=== PATIENT | male | born 1980 | race Caucasian/White ===

== ENCOUNTER 2019-12-20 16:14 | Emergency (ER) | payer OTHER, SELFPAY ==
--- NOTE | ~2019-12-20 | XR_ITS ---
XR foot RT min 3V 12/20/2019 16:47 INDICATION: Right foot pain PROCEDURE: 4 views right foot COMPARISON: No prior studies for comparison. FINDINGS: Fracture, dislocation or subluxation is not identified. Lisfranc joint intact. The soft tis sues appear within normal limits. No foreign bodies are identified. IMPRESSION: 1: NO ACUTE BONE OR JOINT ABNORMALITY IDENTIFIED. Reviewed, dictated and finalized at location A. [employer]
[2019-12-20 16:20] VITALS: BP 111/71; PULSE 98; RESP 20; TEMP 36.6; O2SAT 98
--- NOTE | 2019-12-20 16:32 | ED.LOWEXIN ---
HPI - Extremity Injury (Lower) General Chief Complaint: Extremity Injury, Lower Stated Complaint: right foot pain Time Seen by Provider: 12/20/19 16:33 Source: patient Mode of arrival: ambulatory Limitations: no limitations History of Present Illness HPI Narrative: Previously well 39-year-old man comes in today complaining of pain in his right lateral midfoot this started 2 weeks ago. Patient states that he had an inversion injury and had difficulty bearing weight but then he injured it again last night. Complains of pain and swelling anterior to the lateral malleolus. He states that he has always had trouble moving his toes and had numbness in his toes. He denies prior ankle and foot fractures and prior ankle and foot surgery MD complaint: ankle injury and foot injury Onset (ago): week(s) (2) Injury: Right: ankle and foot Type of Injury: inversion Place: home Severity: moderate Exacerbating factors: weight bearing, movement and palpation Associated symptoms: swelling and ambulatory Other symptoms: none Related Data Allergies Allergy/AdvReac Type Severity Reaction Status Date / Time No Known Allergies Allergy Verified 12/20/19 16:29 Review of Systems Constitutional: Constitutional: Denies chills and Denies fever(s) Musculoskeletal: Musculoskeletal: Reports as per HPI, Reports arthralgias and Reports joint swelling Integumentary/Breasts: Skin/Breast: Denies pruritus and Denies rash Neurologic: Denies vertigo, Denies dizziness and Denies syncope Hematologic/Lymphatic: Hematologic/Lymphatic: Denies easy bleeding and Denies easy bruising Allergic/Immunologic: Allergic/Immunologic: Denies lip swelling and Denies tongue swelling [facility] Social History Social History Smoking status: Never smoker Substance use: never Living arrangements: with family Exam Const: General: alert Orientation/consciousness: patient oriented x3 Other: mild acute distress Eyes: Conjunctivae: conjunctivae normal Pupils: Equal, round and reactive pupils present EOM: EOMs intact bilaterally Resp: Effort & Inspection: normal respiratory effort and not labored Auscultation: clear to auscultation bilaterally, no rales, no rhonchi and no wheezes Cardio: Rate: regular rate Rhythm: regular rhythm Heart sounds: no murmurs Skin: General skin exam: normal color, no jaundice and no pallor Rashes: no rashes Neuro: General: patient oriented x3, no focal motor deficits and CN's II-XI intact bilaterally Speech: normal speech Gait exam (Neuro): Normal gait present Extrem: General: normal to inspection and no clubbing, cyanosis or edema Other: On the right foot and ankle exam, there is tenderness to palpation over the mid lateral tarsals mild tenderness over the distal 5th metatarsal. Some minimal swelling anterior to the right lateral malleolus. there is no tenderness palpation of the medial or lateral malleoli, the length of the fibula, the calcaneus, or the remaining metatarsals or toes. distal neurovascular exam is intact. Psych: Appearance: grossly normal and well kempt Mental Status: mental status grossly normal Affect: normal affect Attitude: cooperative MDM - Extremity Injury (Lower) Differential Diagnosis Differential diagnosis: Likely other ( Ankle sprain, foot fracture) Discharge Plan Discharge Clinical Impression: Ankle sprain and strain Patient Disposition: Home, Self-Care Condition: Stable Instructions: Ankle Sprain (ED) Additional Instructions: Rest, Ice, Elevation, Ibuprofen Ricci wrap at night to reduce swelling. Prescriptions: New acetaminophen-codeine 300-30 mg tablet 1 tablet PO Q6H PRN (Reason: pain) Qty: 7 RF: 0 (DME) crutch Misc See Rx Instructions .ROUTE .MEDSUPPLY Qty: 2 RF: 0 Follow-up/Referrals: UNKNOWN,DOCTOR [Primary Care Provider] - Time of Disposition: 17:05
[2019-12-20] MEDS: IBUPROFEN 600 MG TABLET PO (16:55)
[2019-12-20 17:12] VITALS: RESP 16
== END 2019-12-20 17:12 | disposition home or self-care (01) ==
PROVIDERS: Emergency Provider Emergency Medicine
DX: S93.401A Sprain of unspecified ligament of right ankle, initial encounter (principal)
CPT/HCPCS: 29515; 73630; 99283; A9270; L4350

== ENCOUNTER 2020-05-25 15:26 | Emergency (ER) | payer OTHER, SELFPAY ==
[2020-05-25 16:04] VITALS: BP 108/69; PULSE 88; RESP 20; TEMP 36.7; O2SAT 98
--- NOTE | 2020-05-25 16:05 | ED.GENADULT ---
HPI - General Adult General Chief complaint: Skin/Abscess/Foreign Body Stated complaint: bite on shoulder, swelling and warm to touch Source: patient Mode of arrival: ambulatory Limitations: no limitations History of Present Illness HPI narrative: Doron presented to the ER with a boil on his upper right back. It has been getting progressively larger, more painful and red. He feels ill today and had one episode of NBNB vomiting. No fevers, chills, CHOWDARY, SOB, CP or diarrhea. Related Data Allergies Allergy/AdvReac Type Severity Reaction Status Date / Time No Known Allergies Allergy Verified 12/20/19 16:29 Review of Systems Constitutional: Constitutional: Reports as per HPI and Reports fatigue Eyes: Eyes: Reports no additional eye complaints ENT: Reports system reviewed and no additional complaints, except as documented Cardiovascular: Cardiovascular: Reports no additional cardiovascular complaints Respiratory: Respiratory: Reports no additional respiratory complaints Gastrointestinal: Gastrointestinal: Reports no additional gastrointestinal complaints Genitourinary: Genitourinary: Reports no additional male genitourinary complaints Musculoskeletal: Musculoskeletal: Reports no additional musculoskeletal complaints Integumentary/Breasts: Skin/Breast: Reports as per HPI Neurologic: Reports system reviewed and no additional complaints, except as documented Psychiatric: Psychiatric: Reports no additional psychiatric complaints Endocrine: Endocrine: Reports no additional endocrine complaints Hematologic/Lymphatic: Hematologic/Lymphatic: Reports no additional hematologic/lymphatic complaints Allergic/Immunologic: Allergic/Immunologic: Reports no additional allergic/immunologic complaints [facility] Social History Social History Smoking status: Never smoker Substance use: never Gender identity (if verbalized by the patient): Male Exam Const: General: no acute distress and alert Orientation/consciousness: patient oriented x3 Limitations: No altered mental status HENMT: Head: normal to inspection Mouth: Yes Normal oral and palatal mucosa present Eyes: Conjunctivae: conjunctivae normal Pupils: Equal, round and reactive pupils present Neck: Neck: normal visual inspection Chest: Chest palpation & inspection: normal inspection of the chest Resp: Effort & Inspection: normal respiratory effort, not labored, no retractions and not tachypneic Cardio: Rate: regular rate Skin: Other: Upper right back had a quarter sized raised red boil that was TTP with surrounding erythema. Neuro: General: patient oriented x3, moves all extremities and CN's II-XI intact bilaterally Extrem: General: normal to inspection Psych: Mental Status: mental status grossly normal Affect: normal affect Course Vital Signs Vital signs: Vital Signs Temperature 98.0 F 05/25/20 16:04 Pulse Rate 88 05/25/20 16:04 Respiratory Rate 20 05/25/20 16:04 Blood Pressure 108/69 05/25/20 16:04 Pulse Oximetry 98 05/25/20 16:04 Temperature 98.0 F 05/25/20 16:04 Pulse Rate 88 05/25/20 16:04 Respiratory Rate 20 05/25/20 16:04 Blood Pressure 108/69 05/25/20 16:04 Pulse Oximetry 98 05/25/20 16:04 Procedures Abscess I/D back: Side (if applicable): right Local Anesthetic: lidocaine 1% and with epi Technique: incised with #11 blade Irrigation: No Packing used?: none I&D Results: Pus and Blood Abcess I&D Additional Comments: procedure was well tolerated Medical Decision Making Vital Signs Vital Signs: Vital Signs Temperature 98.0 F 05/25/20 16:04 Pulse Rate 88 05/25/20 16:04 Respiratory Rate 20 05/25/20 16:04 Blood Pressure 108/69 05/25/20 16:04 Pulse Oximetry 98 05/25/20 16:04 Temperature 98.0 F 05/25/20 16:04 Pulse Rate 88 05/25/20 16:04 Respiratory Rate 20 05/25/20 16:04 B
[2020-05-25 16:40] VITALS: BP 110/70; PULSE 84; RESP 20; O2SAT 98
== END 2020-05-25 16:42 | disposition home or self-care (01) ==
PROVIDERS: Emergency Provider Family Medicine
DX: L02.212 Cutaneous abscess of back [any part, except buttock and flank] (principal)
CPT/HCPCS: 10060; 99283

== ENCOUNTER 2021-10-20 04:12 | Emergency (ER) | payer OTHER, SELFPAY ==
--- NOTE | ~2021-10-20 | XR_ITS ---
EXAMINATION: XR foot LT 2V DATE: 10/20/2021 04:35 INDICATION: Left foot and ankle pain. TECHNIQUE: 2 views of left foot were obtained. COMPARISON: None. FINDINGS: Bone alignment is normal. No fracture. There is mild osteoarthritis of first metatarsophala ngeal joint and some of the interphalangeal joints. IMPRESSION: 1. Mild polyarticular osteoarthritis. Reviewed, dictated and finalized at location A.
[2021-10-20 04:15] VITALS: BP 122/83; PULSE 81; RESP 18; TEMP 36.7; O2SAT 98
--- NOTE | 2021-10-20 04:29 | ED.LOWEXIN ---
HPI - Extremity Injury (Lower) General Chief Complaint: Extremity Injury, Lower Stated Complaint: left foot pain Source: patient Mode of arrival: ambulatory Limitations: no limitations History of Present Illness HPI Narrative: this is a 41-year-old male presents with some left ankle and foot pain with no known injury started earlier today and intensified overnight the foot and ankle is red warm swollen and tender to touch had a similar episode about 3 4 months ago with red warmth and tenderness to his right foot and ankle. No known injury has limited range of motion secondary to pain swelling, no significant past medical history. MD complaint: other ( patient has been having tenderness throughout the day but pain will woke him) Onset (ago): day(s) Injury: Left: foot ( pain warmth and tenderness swelling) Place: home Severity: moderate Severity scale (1-10): 6 Relieving factors: immobilization Exacerbating factors: weight bearing and palpation Related Data Allergies Allergy/AdvReac Type Severity Reaction Status Date / Time fluoxetine [From Prozac] Allergy Unknown Verified 10/20/21 04:19 Review of Systems Review of Systems: All systems reviewed & are unremarkable except as noted in HPI and below PMFSH Past Medical History Medical History Patient denies medical problems Social History Social History Smoking status: Never smoker Substance use: never Gender identity (if verbalized by the patient): Male Exam Const: General: healthy appearing and no acute distress Limitations: no limitations HENMT: Head: normal to inspection Ears: external ears normal General nose exam: Normal external nose present Face and sinus: normal facial exam Mouth: Yes Normal oral and palatal mucosa present Eyes: Conjunctivae: conjunctivae normal Pupils: Equal, round and reactive pupils present EOM: EOMs intact bilaterally Neck: Neck: normal visual inspection, no lymphadenopathy and no meningeal signs Chest: Chest palpation & inspection: normal inspection of the chest Resp: Effort & Inspection: normal respiratory effort Auscultation: clear to auscultation bilaterally Cardio: Rate: regular rate Rhythm: regular rhythm GI: GI Palp: Yes Soft to palpation Auscultation: normal bowel sounds Back/Spine/Pelvis: Back: no CVA tenderness Skin: General skin exam: normal color Rashes: no rashes Wounds: no wounds Neuro: General: patient oriented x3, moves all extremities and no meningeal signs Extrem: Other: red warm and swollen left foot and ankle Psych: Mental Status: mental status grossly normal Course Course Emergency Course: x-ray reviewed shows no acute fractures, 60mg IM Toradol given patient after reassessment does have some moderate relief of his pain and swelling. Vital Signs Vital signs: Vital Signs Temperature 36.7 C 10/20/21 04:15 Pulse Rate 81 10/20/21 04:15 Respiratory Rate 18 10/20/21 04:15 Blood Pressure 122/83 10/20/21 04:15 Pulse Oximetry 98 10/20/21 04:15 Oxygen Delivery Room Air 10/20/21 04:15 Temperature 36.7 C 10/20/21 04:15 Pulse Rate 81 10/20/21 04:15 Respiratory Rate 18 10/20/21 04:15 Blood Pressure 122/83 10/20/21 04:15 Pulse Oximetry 98 10/20/21 04:15 Oxygen Delivery Room Air 10/20/21 04:15 Critical Care Time Critical Care Time Critical Care Time: No Discharge Plan Discharge Clinical Impression: Gout attack Qualifiers: Gout site: foot Gout etiology: unspecified cause Laterality: left Qualified Code(s): M10.9 - Gout, unspecified Patient Disposition: Home, Self-Care Condition: Stable Instructions: Antibiotic Form, Gout (ED) Additional Instructions: take medicine as prescribed and follow-up with primary care physician in 1 week for further evaluation and treatment. Prescriptions: New indomethacin 50 mg capsule
[2021-10-20] MEDS: KETOROLAC (*BKC) 60 MG/2 ML VIAL IM (04:32)
[2021-10-20 05:06] VITALS: BP 125/82; PULSE 82; RESP 16; O2SAT 98
== END 2021-10-20 05:08 | disposition home or self-care (01) ==
PROVIDERS: Emergency Provider Emergency Medicine
DX: M10.9 Gout, unspecified (principal)
CPT/HCPCS: 73620; 96372; 99283; J1885

== ENCOUNTER 2021-10-26 11:45 | Outpatient (CLI) | payer OTHER, SELFPAY ==
[2021-10-26 11:58] LABS: Hematocrit 44.3 % (40.0-54.0); Hemoglobin 15.7 g/dL (14.0-18.0); Mean Corpuscular HGB Conc 35.4 g/dL (32.0-36.0); Mean Corpuscular Hemoglobin 31.4 pg (27.0-31.0); Mean Corpuscular Volume 88.6 fL (78.0-102.0); Mean Platelet Volume 10.2 fl (8.7-11.0); Platelet Count Result 206 K/mm3 (150-420); Red Cell Distribution Width 13.5 % (11.6-14.4); White Blood Count 6.2 K/mm3 (4.8-10.8)
[2021-10-26 12:43] LABS: Alanine Aminotransferase 21 U/L (16-63); Albumin Level 3.8 g/dL (3.4-5.0); Alkaline Phosphatase 89 U/L (46-116); Anion Gap 10 mmol/L (8-16); Aspartate Amino Transferase 12 U/L (15-37); Bilirubin,Total 0.3 mg/dL (0.00-1.00); Blood Urea Nitrogen 13 mg/dL (7-18); Calcium 8.8 mg/dL (8.5-10.1); Carbon Dioxide 24 mmol/L (21-32); Chloride 104 mmol/L (98-108); Cholesterol 249 mg/dL (0-200); Estimated Glomerular Filt Rate 46; Glucose 109 mg/dL (70-99); HDL Direct 40 mg/dL (40-60); LDL Cholesterol Calculated 175 mg/dL (<130); Osmolality Calculated 287 mOsm/kg (285-295); Potassium 3.9 mmol/L (3.5-5.1); Sodium 138 mmol/L (136-145); Total Protein 7.3 g/dL (6.4-8.2); Triglycerides 172 mg/dL (0-150); Uric Acid 7.6 mg/dL (3.5-7.2)
== END 2021-10-26 11:46 | disposition home or self-care (01) ==
LOC: CHSLAB 11:48
PROVIDERS: PCP Family Medicine; Visit Provider Family Medicine
DX: M10.9 Gout, unspecified (principal)
CPT/HCPCS: 36415; 80053; 80061; 84550; 85027

== ENCOUNTER 2021-11-13 13:19 | Outpatient (CLI) | payer OTHER, SELFPAY ==
[2021-11-13 14:33] LABS: SARS-CoV-2 RNA PCR Negative (Negative)
== END 2021-11-13 13:20 | disposition home or self-care (01) ==
LOC: CHSLAB 13:22
PROVIDERS: PCP Family Medicine; Visit Provider Family Medicine
DX: Z20.822 Contact with and (suspected) exposure to COVID-19 (principal)
CPT/HCPCS: C9803; U0003; U0005

== ENCOUNTER 2021-11-16 16:17 | Outpatient (CLI) | payer OTHER, SELFPAY ==
--- NOTE | ~2021-11-16 | XR_ITS ---
EXAMINATION: XR chest 2V 11/16/2021 16:37 INDICATION: Cough PROCEDURE: 2 view chest COMPARISON: No prior studies for comparison. FINDINGS: The lungs are clear. The cardiomediastinal silhouette is within normal limits. There are no pleural effusions. There is no pneumothorax suspected. IMPRESSION: 1: NO ACUTE CARDIOPULMONARY DISEASE. Reviewed, dictated and finalized at location B.
== END 2021-11-16 16:18 | disposition home or self-care (01) ==
LOC: CHSLAB 16:19
PROVIDERS: PCP Family Medicine; Visit Provider Family Medicine
DX: R05.9 Cough, unspecified (principal)
CPT/HCPCS: 71046

== ENCOUNTER 2023-04-12 09:28 | Emergency (ER) | payer SELFPAY ==
[2023-04-12 09:29] VITALS: BP 129/96; PULSE 75; RESP 18; TEMP 36.4; O2SAT 99
--- NOTE | 2023-04-12 09:32 | ED.EXTPRO ---
HPI - Extremity Problem General Chief complaint: Extremity Problem,Nontraumatic Stated complaint: left toe pain Time Seen by Provider: 04/12/23 09:32 Source: patient Mode of arrival: ambulatory Limitations: no limitations History of Present Illness HPI Narrative: patient is a 43-year-old male with a left great toe pain. Pain is been going on for a few days. His boss sent him to the hospital for evaluation because he could not work due to the pain. MD Complaint: extremity pain ( Left great toe) and joint paint ( left great toe) Onset (ago): day(s) (3) Pain Consistency: constant Location: left, lower extremity and toe ( great toe) Severity scale (1-10): 7 Quality: stabbing, sharp and constant Radiation: proximal Relieving factors: nothing Exacerbating factors: range of motion, weight bearing, walking, exertion and palpation Associated symptoms: denies other symptoms Context: history of gout Related Data Allergies Allergy/AdvReac Type Severity Reaction Status Date / Time fluoxetine [From Prozac] Allergy Unknown Verified 11/16/21 14:46 Review of Systems Review of Systems: All systems reviewed & are unremarkable except as noted in HPI and below Constitutional: Constitutional: Reports no additional constitutional complaints Eyes: Eyes: Reports no additional eye complaints ENT: Reports system reviewed and no additional complaints, except as documented Cardiovascular: Cardiovascular: Reports no additional cardiovascular complaints Respiratory: Respiratory: Reports no additional respiratory complaints Gastrointestinal: Gastrointestinal: Reports no additional gastrointestinal complaints Genitourinary: Genitourinary: Reports no additional male genitourinary complaints Musculoskeletal: Musculoskeletal: Reports no additional musculoskeletal complaints Integumentary/Breasts: Skin/Breast: Reports system reviewed and no additional complaints, except as docu Neurologic: Reports system reviewed and no additional complaints, except as documented Psychiatric: Psychiatric: Reports no additional psychiatric complaints Endocrine: Endocrine: Reports no additional endocrine complaints Hematologic/Lymphatic: Hematologic/Lymphatic: Reports no additional hematologic/lymphatic complaints Allergic/Immunologic: Allergic/Immunologic: Reports no additional allergic/immunologic complaints PMFSH Past Medical History Medical History Patient denies medical problems Social History Social History Smoking packs per day: 0.5 Smoking cigarettes per day: 10.0 Years smoked: 20 Smoking pack-years: 10.00 Smoking status: Current every day smoker Tobacco type: cigarettes Substance use: never Living arrangements: with family Gender identity (if verbalized by the patient): Male Exam Const: General: healthy appearing Nutritional Appearance: well nourished Orientation/consciousness: patient oriented x3 HENMT: Head: normal to inspection Ears: external ears normal Face/Nose/Sinus: Normal external nose present Eyes: Conjunctivae: conjunctivae normal Pupils: Equal, round and reactive pupils present EOM: EOMs intact bilaterally Neck: Neck: normal visual inspection Chest: Chest palpation & inspection: normal inspection of the chest Resp: Effort & Inspection: normal respiratory effort and not labored Auscultation: clear to auscultation bilaterally and no crackles Cardio: Rate: regular rate Rhythm: regular rhythm Heart sounds: no murmurs GI: Inspection: non-distended GI Palp: Yes Soft to palpation and No Tenderness to palpation present (GI) Auscultation: normal bowel sounds : General: Yes bladder normal to palpation Back/Spine/Pelvis: Back: no CVA tenderness Skin: General skin exam: normal color Rashes: no rashes Wounds: no wounds Neuro: General: patient oriented x3 Cranial nerves: Yes Nystagmus not p
== END 2023-04-12 09:54 | disposition home or self-care (01) ==
LOC: CHSED 09:46
PROVIDERS: Emergency Provider Emergency Medicine; PCP Family Medicine
DX: M10.072 Idiopathic gout, left ankle and foot (principal); F17.210 Nicotine dependence, cigarettes, uncomplicated
CPT/HCPCS: 99283

== ENCOUNTER 2023-04-29 12:49 | Emergency (ER) | payer SELFPAY ==
[2023-04-29 12:49] VITALS: BP 110/85; PULSE 96; RESP 18; TEMP 37.2; O2SAT 95
[2023-04-29 13:12] VITALS: O2SAT 95
[2023-04-29 13:14] LABS: Basophils Absolute Auto 0.05 K/mm3 (0.00-0.10); Basophils Percent Auto 0.9 % (0.0-1.0); Eosinophils Absolute Auto 0.19 K/mm3 (0.02-0.50); Eosinophils Percent Auto 3.3 % (1.0-6.0); Hematocrit 48.5 % (40.0-54.0); Hemoglobin 16.6 g/dL (14.0-18.0); Immature Granulocyte Absolute 0.01 K/mm3 (0.00-0.00); Immature Granulocyte Percent A 0.2 % (0.0-0.0); Lymphocytes Absolute Auto 2.03 K/mm3 (1.10-4.50); Lymphocytes Percent Auto 35.1 % (18.0-42.0); Mean Corpuscular HGB Conc 34.2 g/dL (32.0-36.0); Mean Corpuscular Hemoglobin 30.5 pg (27.0-31.0); Mean Corpuscular Volume 89.2 fL (78.0-102.0); Monocytes Absolute Auto 0.58 K/mm3 (0.10-0.90); Neutrophils Absolute Auto 2.9 K/mm3 (1.7-7.2); Neutrophils Percent Auto 50.5 % (50.0-70.0); Platelet Count Result 148 K/mm3 (150-420); Red Blood Count 5.44 M/mm3 (4.70-6.10); Red Cell Distribution Width 13.3 % (11.6-14.4); White Blood Count 5.8 K/mm3 (4.8-10.8)
[2023-04-29 13:19] VITALS: BP 111/76; PULSE 90; RESP 16; O2SAT 95
[2023-04-29] MEDS: SODIUM CHLORIDE 0.9% IV 1,000 ML 999 ML IV CONT (13:23)
--- NOTE | 2023-04-29 13:23 | ED.URI ---
HPI - URI/Sore Throat General Chief Complaint: Upper Respiratory Infection Stated Complaint: cough; nausea; vomiting Time Seen by Provider: 04/29/23 12:53 Source: patient Mode of arrival: ambulatory Limitations: no limitations History of Present Illness HPI Narrative: Patient is a 43-year-old male with significant past medical history that presents today for flu-like symptoms. Patient has cough, congestion, rhinorrhea, vomiting, nausea for the last 2 days. He was exposed to influenza. His son has influenza type A. He denies any fevers. Denies any shortness of breath. He says he is not pale hold any fluids or solids down very well. MD elicited complaint: cough, sore throat, rhinorrhea and nasal congestion Onset (ago): day(s) Consistency: constant Severity: mild Description of mucous: yellow and green Able to tolerate fluids by mouth: No Exacerbating factors: exertion Relieving factors: nothing Context: sick contacts Associated symptoms: myalgias, headache, rhinorrhea, nasal congestion, sore throat, abdominal pain, nausea and vomiting Related Data Allergies Allergy/AdvReac Type Severity Reaction Status Date / Time fluoxetine [From Prozac] Allergy Unknown Verified 04/29/23 13:13 Review of Systems Review of Systems: All systems reviewed & are unremarkable except as noted in HPI and below Constitutional: Constitutional: Reports no additional constitutional complaints Eyes: Eyes: Reports no additional eye complaints ENT: Reports system reviewed and no additional complaints, except as documented Cardiovascular: Cardiovascular: Reports no additional cardiovascular complaints Respiratory: Respiratory: Reports no additional respiratory complaints Gastrointestinal: Gastrointestinal: Reports no additional gastrointestinal complaints Genitourinary: Genitourinary: Reports no additional male genitourinary complaints Musculoskeletal: Musculoskeletal: Reports no additional musculoskeletal complaints Integumentary/Breasts: Skin/Breast: Reports system reviewed and no additional complaints, except as docu Neurologic: Reports system reviewed and no additional complaints, except as documented Psychiatric: Psychiatric: Reports no additional psychiatric complaints Endocrine: Endocrine: Reports no additional endocrine complaints Hematologic/Lymphatic: Hematologic/Lymphatic: Reports no additional hematologic/lymphatic complaints Allergic/Immunologic: Allergic/Immunologic: Reports no additional allergic/immunologic complaints [facility] Past Medical History Medical History Patient denies medical problems Social History Social History Smoking packs per day: 0.5 Smoking cigarettes per day: 10.0 Years smoked: 20 Smoking pack-years: 10.00 Smoking status: Current every day smoker Tobacco type: cigarettes Substance use: never Living arrangements: with family Gender identity (if verbalized by the patient): Male Exam Const: General: ill appearing Nutritional Appearance: well nourished Orientation/consciousness: patient oriented x3 HENMT: Head: normal to inspection Ears: external ears normal Face/Nose/Sinus: Normal external nose present Face and sinus: normal facial exam Eyes: Conjunctivae: conjunctivae normal Pupils: Equal, round and reactive pupils present EOM: EOMs intact bilaterally Neck: Neck: normal visual inspection Chest: Chest palpation & inspection: normal inspection of the chest Resp: Effort & Inspection: normal respiratory effort Auscultation: clear to auscultation bilaterally Cardio: Rate: regular rate Rhythm: regular rhythm GI: GI Palp: Yes Soft to palpation : General: Yes bladder normal to palpation Back/Spine/Pelvis: Back: no CVA tenderness Skin: General skin exam: normal color Rashes: no rashes Wounds: no wounds Neuro: General: patient oriented x3 and moves all extr
[2023-04-29] MEDS: ONDANSETRON INJ 4 MG/2 ML VIAL IV PUSH (13:24)
[2023-04-29] MEDS: KETOROLAC 30 MG/ML VIAL (*BKC) IV PUSH (13:25)
[2023-04-29 13:32] LABS: Alanine Aminotransferase 42 U/L (16-63); Albumin Level 3.7 g/dL (3.4-5.0); Alkaline Phosphatase 128 U/L (46-116); Anion Gap 13 mmol/L (8-16); Aspartate Amino Transferase 39 U/L (15-37); Bilirubin,Total 0.4 mg/dL (0.00-1.00); Blood Urea Nitrogen 13 mg/dL (7-18); Calcium 8.5 mg/dL (8.5-10.1); Carbon Dioxide 23 mmol/L (21-32); Chloride 102 mmol/L (98-108); Estimated CRCL calculation 56 ml/min; Estimated Glomerular Filt Rate 47; Glucose 94 mg/dL (70-99); Osmolality Calculated 286 mOsm/kg (285-295); Potassium 3.8 mmol/L (3.5-5.1); Sodium 138 mmol/L (136-145); Total Protein 7.6 g/dL (6.4-8.2)
[2023-04-29 13:41] LABS: SARS-CoV-2 RNA PCR Negative (Negative)
[2023-04-29 13:43] LABS: Influenza A QL RT-PCR Negative (Negative); Influenza B QL RT-PCR Positive (Negative); RSV RNA, RT-PCR Negative (Negative)
[2023-04-29 14:42] VITALS: BP 111/74; PULSE 70; RESP 16; O2SAT 96
== END 2023-04-29 14:48 | disposition home or self-care (01) ==
PROVIDERS: Emergency Provider Family Medicine; PCP Family Medicine
DX: J10.1 Influenza due to other identified influenza virus with other respiratory manifestations (principal); Z20.822 Contact with and (suspected) exposure to COVID-19; F17.210 Nicotine dependence, cigarettes, uncomplicated
CPT/HCPCS: 36415; 80053; 85025; 87637; 96361; 96374; 96375; 99284; J1885; J2405; J7030

== ENCOUNTER 2024-03-30 16:46 | Emergency (ER) | payer OTHER, SELFPAY ==
--- NOTE | ~2024-03-30 | XR_ITS ---
EXAMINATION: XR chest 1V portable DATE: 03/30/2024 17:22 INDICATION: Cough. TECHNIQUE: A single frontal view of the chest was obtained. COMPARISON: Chest 2 views 11/16/2021 FINDINGS: There is no pneumonia, pleural effusion, or pneumothorax. The heart size is normal. There i s a small hiatal hernia. IMPRESSION: 1. Small hiatal hernia. Reviewed, dictated and finalized at location A. 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 Small hiatal hernia.
[2024-03-30 16:47] VITALS: BP 111/78; PULSE 100; RESP 16; TEMP 36.9; O2SAT 94
--- NOTE | 2024-03-30 16:48 | ED_ITS ---
HPI - General Adult General Chief complaint: Upper Respiratory Infection Stated complaint: headache Time Seen by Provider: 03/30/24 16:47 Source: patient Mode of arrival: ambulatory Limitations: no limitations History of Present Illness HPI narrative: 44 years old white male came to the ED complaining of feeling tired, coughing, was running fever, headache and body aches started 5 days ago. Patient is telling me that his and children tested positive for flu. He denies any nausea or vomiting, chest pain or shortness of breath. Related Data Allergies Allergy/AdvReac Type Severity Reaction Status Date / Time fluoxetine (From Prozac) Allergy Unknown Verified 04/29/23 13:13 Review of Systems Review of Systems: All systems reviewed & are unremarkable except as noted in HPI and below PMFSH Past Medical History Medical History Patient denies medical problems Social History Social History Smoking packs per day: 0.5 Smoking cigarettes per day: 10.0 Years smoked: 20 Smoking pack-years: 10.00 Smoking status: Current every day smoker Tobacco type: cigarettes Substance use: never Living arrangements: with family Gender identity (if verbalized by the patient): Male Exam Narrative: General appearance: Well-developed, well-nourished Skin: Normal color Head: Normocephalic, nontraumatic Eyes: Clear conjunctiva ENT: Oropharynx normal, ears normal, nose normal Neck: Supple, nontender Chest and respiratory: Airway patent, no respiratory distress, no accessory muscle use Heart: Regular rate/rhythm Abdomen: Soft, nontender, no organomegaly, quiet bowel sounds Vascular: Normal peripheral pulses, normal capillary refill. Musculoskeletal: Normal range of motion, nontender back Neurologic: Alert and oriented ?3, MAINTENANCE CARPENTER is normal as tested, no gross motor deficit Course Vital Signs Vital signs: Vital Signs Temperature 36.9 C 03/30/24 16:47 Pulse Rate 100 03/30/24 16:47 Respiratory Rate 16 03/30/24 16:47 Blood Pressure 111/78 03/30/24 16:47 Pulse Oximetry 94 03/30/24 16:47 Oxygen Delivery Room Air 03/30/24 16:47 Temperature 37.1 C 03/30/24 18:17 Pulse Rate 86 03/30/24 18:17 Respiratory Rate 16 03/30/24 18:17 Blood Pressure 105/81 03/30/24 18:17 Pulse Oximetry 97 03/30/24 18:17 Oxygen Delivery Room Air 03/30/24 18:17 Medical Decision Making MDM Narrative Medical decision making narrative: patient came with upper respiratory viral infection like symptoms Chest x-ray showed no acute abnormalities Patient tested positive for influenza A. Patient's symptoms started 5 days ago, Tamiflu is not recommended at this time. The Symptomatic treatment is my recommendation. Differential Diagnosis Differential Diagnosis: Upper respiratory viral infection, bronchitis, pneumonia Vital Signs Vital Signs: Vital Signs Temperature 36.9 C 03/30/24 16:47 Pulse Rate 100 03/30/24 16:47 Respiratory Rate 16 03/30/24 16:47 Blood Pressure 111/78 03/30/24 16:47 Pulse Oximetry 94 03/30/24 16:47 Oxygen Delivery Room Air 03/30/24 16:47 Temperature 37.1 C 03/30/24 18:17 Pulse Rate 86 03/30/24 18:17 Respiratory Rate 16 03/30/24 18:17 Blood Pressure 105/81 03/30/24 18:17 Pulse Oximetry 97 03/30/24 18:17 Oxygen Delivery Room Air 03/30/24 18:17 Lab Data Labs: Lab Results 03/30/24 Range/Units 16:48 Influenza A (RT-PCR) Positive A (Negative) Influenza B (RT-PCR) Negative (Negative) RSV (RT-PCR) Negative (Negative) SARS-CoV-2 RNA (RT-PCR) Negative (Negative) Imaging Data Radiologist's impression: Impressions Chest X-Ray 03/30/24 17:26 IMPRESSION: 1. Small hiatal hernia. Critical Care Time Critical Care Time Critical Care Time: No Discharge Plan Discharge Clinical Impression: Influenza Patient Disposition: Home, Self-Care Condition: Stable Instructions: Influenza (ED) Additional Instructions: Return if symptoms are worsening , call your family physician for appointment, take Tylenol , ibuprofen as as needed for aches and pain, continue home medications. Patient Language: [place] Prescriptions: No Action oseltamivir [Tamiflu] 75 mg capsule 75 mg PO Q12H 5 Days Qty: 10 0RF ondansetron 4 mg tablet,disintegrating 4 mg PO Q6H PRN (Reason: nausea and vomiting) Qty: 14 0RF allopurinol 100 mg tablet 100 mg PO DAILY Qty: 90 0RF Follow-up/Referrals: Eric Keene DO [Primary Care Provider] - Stand Alone Forms: Work/School Release IP
--- NOTE | 2024-03-30 16:56 | PC.NURSE ---
covid culture sent to lab
[2024-03-30] MEDS: ACETAMINOPHEN 325 MG TABLET 650 MG PO (17:00)
[2024-03-30] MEDS: IBUPROFEN 600 MG TABLET PO (17:01)
[2024-03-30 17:36] LABS: Influenza A QL RT-PCR Positive (Negative); Influenza B QL RT-PCR Negative (Negative); RSV RNA, RT-PCR Negative (Negative); SARS-CoV-2 RNA PCR Negative (Negative)
[2024-03-30 18:17] VITALS: BP 105/81; PULSE 86; RESP 16; TEMP 37.1; O2SAT 97
[2024-03-30 18:46] VITALS: BP 105/81; PULSE 86; RESP 16; TEMP 37.1; O2SAT 97
== END 2024-03-30 18:46 | disposition home or self-care (01) ==
LOC: CHSED 17:03
PROVIDERS: Emergency Provider Emergency Medicine; PCP Family Medicine
DX: J10.1 Influenza due to other identified influenza virus with other respiratory manifestations (principal); F17.210 Nicotine dependence, cigarettes, uncomplicated; Z20.822 Contact with and (suspected) exposure to COVID-19
CPT/HCPCS: 71045; 87637; 99283; A9270